=== PATIENT | male | born 1980 | race Caucasian/White ===

== ENCOUNTER 2018-08-02 13:54 | Emergency (ER) | payer OTHER, MEDICAID, SELFPAY ==
[2018-08-02 14:04] VITALS: BP 135/91; PULSE 96; RESP 15; TEMP 37.1; O2SAT 99; BMI 24.3
--- NOTE | 2018-08-02 14:06 | DI.RAD.S_ITS ---
PROCEDURE: XR KNEE LT 3V INDICATIONS: pain. fall TECHNIQUE: 3 views of the knee were acquired. COMPARISON: None. FINDINGS: Bones: No fractures or dislocations. No suspicious bony lesions. Soft tissues: No joint effusion. No suspicious soft tissue calcifications. There is anterior knee soft tissue swelling. IMPRESSION: Anterior left knee soft tissue swelling. No acute fracture or dislocation of the left knee. Dictated by: Stephane Vera M.D. on 08/02/2018 at 14:50 Approved by: Stephane Vera M.D. on 08/02/2018 at 14:52
--- NOTE | 2018-08-02 14:11 | ED.FALL ---
HPI - Fall General Chief Complaint: Fall Stated Complaint: Fell last night Time Seen by Provider: 08/02/18 14:11 Source: patient Mode of arrival: ambulatory Limitations: no limitations History of Present Illness HPI Narrative: Patient is a 37-year-old male here for evaluation of left knee pain. Patient states that he was running at home after his child 2 days ago when he tripped and fell. Landed on his right hand is left elbow and his left knee. He states that his hand and elbow or okay but his left knee is painful and swollen. Patient has been ambulatory since the incident however with pain. Has not tried anything for this except for ice prior to arrival. Related Data Allergies Allergy/AdvReac Type Severity Reaction Status Date / Time gabapentin Allergy Verified 08/02/18 14:04 iodine Allergy Verified 08/02/18 14:04 Review of Systems Constitutional Denies fever(s) Musculoskeletal Denies myalgias, Reports arthralgias (Left knee), Reports joint swelling (Left knee) and Reports limited range of motion (Left knee) Integumentary/Breasts Comments: Abrasion over the left knee Hematologic/Lymphatic Denies easy bleeding Exam Initial Vital Signs Initial Vital Signs: Vital Signs Temperature 98.8 F 08/02/18 14:04 Pulse Rate 96 H 08/02/18 14:04 Respiratory Rate 15 08/02/18 14:04 Blood Pressure 135/91 H 08/02/18 14:04 Pulse Oximetry 99 08/02/18 14:04 Const General: cooperative, well developed, well groomed and No acute distress Orientation: alert, awake and oriented x3 HENMT Head: normal to inspection and normocephalic Resp Effort & Inspection: normal respiratory effort Skin Other: 2 cm abrasion over the left anterior knee. No bleeding. Neuro General: alert, awake and oriented x3 Extrem Other: Left ankle unremarkable. Left hip unremarkable. Patient able to do straight leg raise. Is tender to palpation throughout the knee. Has a small effusion on the left. Psych Appearance: grossly normal and well kempt [facility] Medical History Lumbar radiculopathy, chronic (Acute) Surgical History No pertinent past surgical history (Acute) Course Orders Ordered: ED Orders 08/02/18 14:06 XR knee LT 3V Stat Vital Signs - 8 hr 08/02/18 14:04 Temperature 98.8 F Pulse Rate 96 H Respiratory Rate 15 Blood Pressure 135/91 H Pulse Oximetry 99 MDM - Fall Imaging Data Left knee x-ray: Radiologist's impression: PROCEDURE: XR KNEE LT 3V INDICATIONS: pain. fall TECHNIQUE: 3 views of the knee were acquired. COMPARISON: None. FINDINGS: Bones: No fractures or dislocations. No suspicious bony lesions. Soft tissues: No joint effusion. No suspicious soft tissue calcifications. There is anterior knee soft tissue swelling. IMPRESSION: Anterior left knee soft tissue swelling. No acute fracture or dislocation of the left knee. Dictated by: Stephane Vera M.D. on 08/02/2018 at 14:50 Approved by: Stephane Vera M.D. on 08/02/2018 at 14:52 Discharge Plan Departure Patient Disposition: Home Clinical Impression: Knee effusion, left, Injury of knee, left, Abrasion of knee, left, Fall Instructions: How To Perform RICE (Rest, Ice, Compress, Elevate), DI for Knee Effusion Activity Restrictions/Additional Instructions: You can walk like normal. Use soap and water to keep the abrasion over your left knee clean. Keep the knee elevated and iced. Return to the emergency department for any new or worsening symptoms. You can use ibuprofen/acetaminophen for pain. Stand Alone Forms: Work/School Restrictions
== END 2018-08-02 14:59 | disposition home or self-care (01) ==
PROVIDERS: Emergency Provider Emergency Medicine
DX: S80.212A Abrasion, left knee, initial encounter (principal); M25.462 Effusion, left knee; W01.0XXA Fall on same level from slipping, tripping and stumbling without subsequent striking against object, initial encounter
CPT/HCPCS: 73562; 99283

== ENCOUNTER 2018-09-04 18:02 | Emergency (ER) | payer OTHER, MEDICAID, SELFPAY ==
[2018-09-04 18:08] VITALS: BP 140/90; PULSE 117; RESP 18; TEMP 38.2; O2SAT 97
--- NOTE | 2018-09-04 18:30 | ED.UPPEXIN ---
HPI - Extremity Injury (Upper) <PATRIA Chavis - Last Filed: 09/04/18 22:14> General Chief Complaint: Extremity Injury, Upper Stated Complaint: RIGHT ELBOW BURNING AND PAIN Time Seen by Provider: 09/04/18 18:29 Source: patient Mode of arrival: ambulatory Limitations: no limitations History of Present Illness HPI narrative: 37-year-old healthy male that is a nonsmoker here for complaint of pain to his right elbow over the past week. He denies any trauma to the area. He states that has felt warm to the touch at times. Increased pain with motion to the right elbow. Pain is limited to the right elbow area. He denies any swelling. No drainage from the right elbow. He also complains of having a fever. He thinks that the fever is due to having cold-like symptoms as well. No other concerns or complaints Related Data Allergies Allergy/AdvReac Type Severity Reaction Status Date / Time gabapentin Allergy Verified 08/02/18 14:04 iodine Allergy Verified 08/02/18 14:04 Review of Systems <PATRIA Chavis - Last Filed: 09/04/18 22:14> Constitutional Reports fever(s) Eyes Denies change in vision, Denies eye discharge, Denies irritation and Denies loss of vision ENT Ears, Nose, Mouth, and Throat: Reports nasal congestion Cardiovascular Denies chest pain, Denies irregular heart rhythm, Denies lightheadedness, Denies palpitations, Denies dyspnea, Denies dyspnea on exertion and Denies orthopnea Respiratory Denies cough, Denies dyspnea, Denies dyspnea on exertion and Denies wheezing Gastrointestinal Gastrointestinal: Denies abdominal pain, Denies change in bowel habits, Denies diarrhea, Denies nausea and Denies vomiting Genitourinary Denies hematuria, Denies flank pain, Denies urinary incontinence and Denies urinary urgency Musculoskeletal Denies back pain, Denies muscle weakness, Denies numbness and Denies tingling Comments: pain into right upper Integumentary/Breasts Denies pruritus, Denies erythema, Denies rash and Denies wounds Neurologic Denies loss of vision, Denies numbness and Denies tingling Endocrine Denies palpitations Hematologic/Lymphatic Denies easy bruising Allergic/Immunologic Denies wheezing Exam <PATRIA Chavis - Last Filed: 09/04/18 22:14> Initial Vital Signs Initial Vital Signs: Vital Signs Temperature 100.7 F H 09/04/18 18:08 Pulse Rate 117 H 09/04/18 18:08 Respiratory Rate 18 09/04/18 18:08 Blood Pressure 140/90 09/04/18 18:08 Pulse Oximetry 97 09/04/18 18:08 Const General: cooperative and well developed Nutritional Appearance: well nourished Orientation: alert, awake, oriented x3 and not confused HENMT Mouth: oral mucosae normal and moist mucous membranes Eyes Conjunctivae: conjunctivae normal Sclera: sclerae normal Pupils: PERRL EOM: EOM intact bilaterally Resp Effort & Inspection: normal respiratory effort, able to speak in complete sentences, no respiratory distress and no use of accessory muscles Auscultation: clear to auscultation bilaterally, no rales, no rhonchi and no wheezes Cardio Rate: regular rate Rhythm: regular rhythm Heart Sounds: no click, no gallops, no murmurs and no rubs Pulses: normal peripheral pulses Skin General: no rashes or lesions noted, No jaundice and No petechiae Neuro General: alert, oriented x3, gait normal and no focal motor deficits Speech: speech normal Extrem Other: right elbow with no swelling no erythema. No deformities.Distal sensation is intact. Distal pulses are intact. Distal range of motion is intact. Patient does have increased pain with flexion extension of the right elbow both passive and active <Michael Bhatia DO - Last Filed: 09/04/18 22:55> Initial Vital Signs Initial Vital Signs: Vital Signs Temperature 100.7 F H 09/04/18 18:08 Pulse Rate 117 H 09/04/18 18:08 Respiratory Rate 18 09/04/18 18:08 Blood Pressure 140/90 09/04/18 18:08 Pulse Oximetry 97 09/04/18 18:08 Course <PATRIA Chavis - Last Filed: 09/04/18 22:14> Orders Ordered: ED Orders 09/04/18 19:07 XR elbow RT min 3V Stat 09/04/18 19:30 C-Reactive Protein Quant Stat Complete Blood Count AUTO DIFF Stat Comprehensive Metabolic Panel Stat Erythrocyte Sedimentation Rate Stat Lactate (Lactic Acid) Stat Procalcitonin Stat 09/04/18 19:40 Blood Culture Stat Discontinued Medications Ibuprofen (Advil) 400 mg PO NOW ONE Stop: 09/04/18 19:43 Last Admin: 09/04/18 19:51 Dose: 400 mg Vital Signs - 8 hr 09/04/18 18:08 09/04/18 20:43 Temperature 100.7 F H 98.1 F Pulse Rate 117 H 92 H Respiratory Rate 18 16 Blood Pressure 140/90 Blood Pressure [Right Arm] 118/63 Pulse Oximetry 97 98 <Michael Bhatia DO - Last Filed: 09/04/18 22:55> Orders Ordered: ED Orders 09/04/18 19:07 XR elbow RT min 3V Stat 09/04/18 19:30 C-Reactive Protein Quant Stat Complete Blood Count AUTO DIFF Stat Comprehensive Metabolic Panel Stat Erythrocyte Sedimentation Rate Stat Lactate (Lactic Acid) Stat Procalcitonin Stat 09/04/18 19:40 Blood Culture Stat Discontinued Medications Ibuprofen (Advil) 400 mg PO NOW ONE Stop: 09/04/18 19:43 Last Admin: 09/04/18 19:51 Dose: 400 mg Vital Signs - 8 hr 09/04/18 18:08 09/04/18 20:43 Temperature 100.7 F H 98.1 F Pulse Rate 117 H 92 H Respiratory Rate 18 16 Blood Pressure 140/90 Blood Pressure [Right Arm] 118/63 Pulse Oximetry 97 98 MDM - Extremity Injury (Upper) <PATRIA Chavis - Last Filed: 09/04/18 22:14> Lab Data Result diagrams: 09/04/18 19:30 09/04/18 19:30 Lab Results 09/04/18 09/04/18 09/04/18 Range/Units 19:30 19:30 19:30 WBC 4.5 (4.5-11.0) X10^3/uL RBC 4.51 (4.5-5.9) X10^6/uL Hgb 13.6 (13.5-17.5) g/dL Hct 40.3 L (41-53) % MCV 89.3 (80-100) fL MCH 30.2 (26-34) PG MCHC 33.8 (30-36) % RDW 13.3 (11.6-14.8) % Plt Count 229 (150-400) X10^3/uL Neut % (Auto) 58.9 (50-75) % Lymph % (Auto) 20.1 L (25-40) % Moca % (Auto) 19.7 H (3-14) % Eos % (Auto) 0.5 L (2-4) % Baso % (Auto) 0.8 (0-2) % Neut # (Auto) 2600 (4004-8370) /uL ESR (0-15) MM/HR Sodium Cancelled Potassium Cancelled Chloride Cancelled Carbon Dioxide Cancelled BUN Cancelled Creatinine Cancelled Estimated GFR Cancelled BUN/Creatinine Ratio Cancelled Glucose Cancelled Lactate (0.7-2.1) mmol/L Calcium Cancelled Total Bilirubin Cancelled AST Cancelled ALT Cancelled Alkaline Phosphatase Cancelled C-Reactive Protein (<1.0) mg/dL Total Protein Cancelled Albumin Cancelled Globulin Cancelled Albumin/Globulin Ratio Cancelled Procalcitonin < 0.05 (<0.5) ng/mL Specimen Hemolysis Cancelled 09/04/18 09/04/18 09/04/18 Range/Units 19:30 19:30 19:30 WBC (4.5-11.0) X10^3/uL RBC (4.5-5.9) X10^6/uL Hgb (13.5-17.5) g/dL Hct (41-53) % MCV (80-100) fL MCH (26-34) PG MCHC (30-36) % RDW (11.6-14.8) % Plt Count (150-400) X10^3/uL Neut % (Auto) (50-75) % Lymph % (Auto) (25-40) % Moca % (Auto) (3-14) % Eos % (Auto) (2-4) % Baso % (Auto) (0-2) % Neut # (Auto) (9893-1603) /uL ESR 4 (0-15) MM/HR Sodium 143 Potassium 3.8 Chloride 104 Carbon Dioxide 24 BUN 16 Creatinine 1.00 Estimated GFR > 60.0 BUN/Creatinine Ratio 16.0 Glucose 100 Lactate 0.7 (0.7-2.1) mmol/L Calcium 9.2 Total Bilirubin 0.1 L AST 23 ALT 35 Alkaline Phosphatase 59 C-Reactive Protein < 0.5 (<1.0) mg/dL Total Protein 7.0 Albumin 4.5 Globulin 2.5 Albumin/Globulin Ratio 1.8 Procalcitonin (<0.5) ng/mL Specimen Hemolysis Imaging Data right elbow : Radiologist's impression: [address] [address] XRay Report Signed Patient: Jeffery Lindsay LMR#: [id number] : 1980Acct:[id number] Age/Sex: 37 / MDate of Service: 09/04/18 Loc: ED Accession Number: [id number] Procedure: XR elbow RT min 3V Ordering Provider: Toni Castellanos PROCEDURE: XR ELBOW RT MIN 3V INDICATIONS: pain and redness to right elbow TECHNIQUE: 3 views of the elbow were acquired. COMPARISON: None. FINDINGS: Bones: No fractures or dislocations. No suspicious bony lesions. Soft tissues: No elbow joint effusion. No suspicious soft tissue calcifications. IMPRESSION: No acute elbow fracture or dislocation. No bony erosive changes. Dictated by: Reyes Pina M.D. on 09/04/2018 at 19:23 Approved by: Reyes Pina M.D. on 09/04/2018 at 19:24 [facility] Narrative Medical decision making narrative: CBC was obtained and was unremarkable. Normal white count. Chem panel was obtained was also unremarkable. ESR and CRP were not elevated. Procalcitonin lactate were negative. Fever at check-in most likely secondary to viral upper respiratory infection. After ibuprofen his vital signs normalized. right elbow point presents as right elbow sprain. [id number] ibuprofen as needed for discomfort. Plenty of fluids and rest. Follow up with primary care provider in 1 week. If continued pain to the right elbow that does not resolve May need to have advanced imaging. Return emergency for any worsening symptoms <Michael Bhatia DO - Last Filed: 09/04/18 22:55> Lab Data Lab Results 09/04/18 09/04/18 09/04/18 Range/Units 19:30 19:30 19:30 WBC 4.5 (4.5-11.0) X10^3/uL RBC 4.51 (4.5-5.9) X10^6/uL Hgb 13.6 (13.5-17.5) g/dL Hct 40.3 L (41-53) % MCV 89.3 (80-100) fL MCH 30.2 (26-34) PG MCHC 33.8 (30-36) % RDW 13.3 (11.6-14.8) % Plt Count 229 (150-400) X10^3/uL Neut % (Auto) 58.9 (50-75) % Lymph % (Auto) 20.1 L (25-40) % Moca % (Auto) 19.7 H (3-14) % Eos % (Auto) 0.5 L (2-4) % Baso % (Auto) 0.8 (0-2) % Neut # (Auto) 2600 (7975-3209) /uL ESR (0-15) MM/HR Sodium Cancelled Potassium Cancelled Chloride Cancelled Carbon Dioxide Cancelled BUN Cancelled Creatinine Cancelled Estimated GFR Cancelled BUN/Creatinine Ratio Cancelled Glucose Cancelled Lactate (0.7-2.1) mmol/L Calcium Cancelled Total Bilirubin Cancelled AST Cancelled ALT Cancelled Alkaline Phosphatase Cancelled C-Reactive Protein (<1.0) mg/dL Total Protein Cancelled Albumin Cancelled Globulin Cancelled Albumin/Globulin Ratio Cancelled Procalcitonin < 0.05 (<0.5) ng/mL Specimen Hemolysis Cancelled 09/04/18 09/04/18 09/04/18 Range/Units 19:30 19:30 19:30 WBC (4.5-11.0) X10^3/uL RBC (4.5-5.9) X10^6/uL Hgb (13.5-17.5) g/dL Hct (41-53) % MCV (80-100) fL MCH (26-34) PG MCHC (30-36) % RDW (11.6-14.8) % Plt Count (150-400) X10^3/uL Neut % (Auto) (50-75) % Lymph % (Auto) (25-40) % Moca % (Auto) (3-14) % Eos % (Auto) (2-4) % Baso % (Auto) (0-2) % Neut # (Auto) (2363-7146) /uL ESR 4 (0-15) MM/HR Sodium 143 Potassium 3.8 Chloride 104 Carbon Dioxide 24 BUN 16 Creatinine 1.00 Estimated GFR > 60.0 BUN/Creatinine Ratio 16.0 Glucose 100 Lactate 0.7 (0.7-2.1) mmol/L Calcium 9.2 Total Bilirubin 0.1 L AST 23 ALT 35 Alkaline Phosphatase 59 C-Reactive Protein < 0.5 (<1.0) mg/dL Total Protein 7.0 Albumin 4.5 Globulin 2.5 Albumin/Globulin Ratio 1.8 Procalcitonin (<0.5) ng/mL Specimen Hemolysis Discharge Plan Departure Patient Disposition: Home Clinical Impression: Viral URI Discharge Date/Time: 09/04/18 20:55 Interventions: ED Discharge Assessment Last Done: 09/04/18 20:55 Instructions: DI for Viral Upper Respiratory Infection -- Adult, DI for Elbow Sprain Activity Restrictions/Additional Instructions: x-ray the right elbow was obtained was negative for any acute findings. Laboratory results today were unremarkable. Signs and symptoms of fever and nasal congestion present as a viral upper respiratory infection. Right elbow pain presents as elbow sprain. Use [id number] ibuprofen as needed for discomfort and fever. Plenty of fluids and rest. Follow up with primary care provider. If continued pain that does not resolve may need to have advanced imaging. For any worsening symptoms return emergency room Referrals: [facility] [Provider Group] <Michael Bhatia DO - Last Filed: 09/04/18 22:55> Cosign ED Attending Rosemarie Attestation: I was available for consultation during this patient's emergency department encounter
--- NOTE | 2018-09-04 19:07 | DI.RAD.S_ITS ---
PROCEDURE: XR ELBOW RT MIN 3V INDICATIONS: pain and redness to right elbow TECHNIQUE: 3 views of the elbow were acquired. COMPARISON: None. FINDINGS: Bones: No fractures or dislocations. No suspicious bony lesions. Soft tissues: No elbow joint effusion. No suspicious soft tissue calcifications. IMPRESSION: No acute elbow fracture or dislocation. No bony erosive changes. Dictated by: Reyes Pina M.D. on 09/04/2018 at 19:23 Approved by: Reyes Pina M.D. on 09/04/2018 at 19:24
[2018-09-04] MEDS: IBUPROFEN 400 MG TABLET PO (19:51)
[2018-09-04 19:54] LABS: Add Manual Diff / Slide Review NO; Basophils Percent Auto 0.8 % (0-2); Eosinophils Percent Auto 0.5 % (2-4); Hematocrit 40.3 % (41-53); Hemoglobin 13.6 g/dL (13.5-17.5); Lymphocytes Percent Auto 20.1 % (25-40); Mean Corpuscular HGB Conc 33.8 % (30-36); Mean Corpuscular Hemoglobin 30.2 PG (26-34); Mean Corpuscular Volume 89.3 fL (80-100); Monocytes Percent Auto 19.7 % (3-14); Neutrophils Absolute Auto 2600 /uL (1500-7000); Neutrophils Percent Auto 58.9 % (50-75); Platelet Count 229 X10^3/uL (150-400); Red Blood Cell Count 4.51 X10^6/uL (4.5-5.9); Red Cell Distribution Width 13.3 % (11.6-14.8); White Blood Cell Count 4.5 X10^3/uL (4.5-11.0)
--- NOTE | 2018-09-04 19:58 | PC.NURSE ---
drawn by lab
[2018-09-04 20:07] LABS: Lactate (Lactic Acid) 0.7 mmol/L (0.7-2.1)
[2018-09-04 20:09] LABS: Alanine Aminotransferase 35 IU/L (21-72); Albumin 4.5 g/dL (3.5-5.0); Albumin Globulin Ratio 1.8 (1.0-2.8); Alkaline Phosphatase 59 U/L (38-126); Aspartate Aminotransferase 23 IU/L (17-59); Bilirubin Total 0.1 mg/dL (0.2-1.3); Blood Urea Nitrogen 16 mg/dL (9-20); C-Reactive Protein Quant < 0.5 mg/dL (<1.0); Calcium 9.2 mg/dL (8.4-10.2); Carbon Dioxide 24 mmol/L (22-32); Chloride 104 mmol/L (98-107); Estimated Glomerular Filt Rate > 60.0 mL/min (>60); Globulin 2.5 g/dL (1.7-4.1); Glucose 100 mg/dL (70-100); HEMOLYSIS < 15 (0-50); Potassium 3.8 mmol/L (3.4-5.1); Sodium 143 mmol/L (137-145)
[2018-09-04 20:12] LABS: Erythrocyte Sedimentation Rate 4 MM/HR (0-15)
[2018-09-04 20:24] LABS: Procalcitonin < 0.05 ng/mL (<0.5)
[2018-09-04 20:43] VITALS: BP 118/63; PULSE 92; RESP 16; TEMP 36.7; O2SAT 98
--- NOTE | 2018-09-04 20:50 | ED_ITS ---
HPI - Extremity Injury (Upper) <PATRIA Chavis - Last Filed: 09/04/18 22:14> General Chief Complaint: Extremity Injury, Upper Stated Complaint: RIGHT ELBOW BURNING AND PAIN Time Seen by Provider: 09/04/18 18:29 Source: patient Mode of arrival: ambulatory Limitations: no limitations History of Present Illness HPI narrative: 37-year-old healthy male that is a nonsmoker here for complaint of pain to his right elbow over the past week. He denies any trauma to the area. He states that has felt warm to the touch at times. Increased pain with motion to the right elbow. Pain is limited to the right elbow area. He denies any swelling. No drainage from the right elbow. He also complains of having a fever. He thinks that the fever is due to having cold- like symptoms as well. No other concerns or complaints Related Data Allergies Allergy/AdvReac Type Severity Reaction Status Date / Time gabapentin Allergy Verified 08/02/18 14:04 iodine Allergy Verified 08/02/18 14:04 Review of Systems <PATRIA Chavis - Last Filed: 09/04/18 22:14> Constitutional Reports fever(s) Eyes Denies change in vision, Denies eye discharge, Denies irritation and Denies loss of vision ENT Ears, Nose, Mouth, and Throat: Reports nasal congestion Cardiovascular Denies chest pain, Denies irregular heart rhythm, Denies lightheadedness, Denies palpitations, Denies dyspnea, Denies dyspnea on exertion and Denies orthopnea Respiratory Denies cough, Denies dyspnea, Denies dyspnea on exertion and Denies wheezing Gastrointestinal Gastrointestinal: Denies abdominal pain, Denies change in bowel habits, Denies diarrhea, Denies nausea and Denies vomiting Genitourinary Denies hematuria, Denies flank pain, Denies urinary incontinence and Denies urinary urgency Musculoskeletal Denies back pain, Denies muscle weakness, Denies numbness and Denies tingling Comments: pain into right upper Integumentary/Breasts Denies pruritus, Denies erythema, Denies rash and Denies wounds Neurologic Denies loss of vision, Denies numbness and Denies tingling Endocrine Denies palpitations Hematologic/Lymphatic Denies easy bruising Allergic/Immunologic Denies wheezing Exam <PATRIA Chavis - Last Filed: 09/04/18 22:14> Initial Vital Signs Initial Vital Signs: Vital Signs Temperature 100.7 F H 09/04/18 18:08 Pulse Rate 117 H 09/04/18 18:08 Respiratory Rate 18 09/04/18 18:08 Blood Pressure 140/90 09/04/18 18:08 Pulse Oximetry 97 09/04/18 18:08 Const General: cooperative and well developed Nutritional Appearance: well nourished Orientation: alert, awake, oriented x3 and not confused HENMT Mouth: oral mucosae normal and moist mucous membranes Eyes Conjunctivae: conjunctivae normal Sclera: sclerae normal Pupils: PERRL EOM: EOM intact bilaterally Resp Effort & Inspection: normal respiratory effort, able to speak in complete sentences, no respiratory distress and no use of accessory muscles Auscultation: clear to auscultation bilaterally, no rales, no rhonchi and no wheezes Cardio Rate: regular rate Rhythm: regular rhythm Heart Sounds: no click, no gallops, no murmurs and no rubs Pulses: normal peripheral pulses Skin General: no rashes or lesions noted, No jaundice and No petechiae Neuro General: alert, oriented x3, gait normal and no focal motor deficits Speech: speech normal Extrem Other: right elbow with no swelling no erythema. No deformities.Distal sensation is intact. Distal pulses are intact. Distal range of motion is intact. Patient does have increased pain with flexion extension of the right elbow both passive and active <Michael Bhatia DO - Last Filed: 09/04/18 22:55> Initial Vital Signs Initial Vital Signs: Vital Signs Temperature 100.7 F H 09/04/18 18:08 Pulse Rate 117 H 09/04/18 18:08 Respiratory Rate 18 09/04/18 18:08 Blood Pressure 140/90 09/04/18 18:08 Pulse Oximetry 97 09/04/18 18:08 Course <PATRIA Chavis - Last Filed: 09/04/18 22:14> Orders Ordered: ED Orders 09/04/18 19:07 XR elbow RT min 3V Stat 09/04/18 19:30 C-Reactive Protein Quant Stat Complete Blood Count AUTO DIFF Stat Comprehensive Metabolic Panel Stat Erythrocyte Sedimentation Rate Stat Lactate (Lactic Acid) Stat Procalcitonin Stat 09/04/18 19:40 Blood Culture Stat Discontinued Medications Ibuprofen (Advil) 400 mg PO NOW ONE Stop: 09/04/18 19:43 Last Admin: 09/04/18 19:51 Dose: 400 mg Vital Signs - 8 hr 09/04/18 18:08 09/04/18 20:43 Temperature 100.7 F H 98.1 F Pulse Rate 117 H 92 H Respiratory Rate 18 16 Blood Pressure 140/90 Blood Pressure [Right Arm] 118/63 Pulse Oximetry 97 98 <Michael Bhatia DO - Last Filed: 09/04/18 22:55> Orders Ordered: ED Orders 09/04/18 19:07 XR elbow RT min 3V Stat 09/04/18 19:30 C-Reactive Protein Quant Stat Complete Blood Count AUTO DIFF Stat Comprehensive Metabolic Panel Stat Erythrocyte Sedimentation Rate Stat Lactate (Lactic Acid) Stat Procalcitonin Stat 09/04/18 19:40 Blood Culture Stat Discontinued Medications Ibuprofen (Advil) 400 mg PO NOW ONE Stop: 09/04/18 19:43 Last Admin: 09/04/18 19:51 Dose: 400 mg Vital Signs - 8 hr 09/04/18 18:08 09/04/18 20:43 Temperature 100.7 F H 98.1 F Pulse Rate 117 H 92 H Respiratory Rate 18 16 Blood Pressure 140/90 Blood Pressure [Right Arm] 118/63 Pulse Oximetry 97 98 MDM - Extremity Injury (Upper) <PATRIA Chavis - Last Filed: 09/04/18 22:14> Lab Data Result diagrams: 09/04/18 19:30 09/04/18 19:30 Lab Results 09/04/18 09/04/18 09/04/18 Range/Units 19:30 19:30 19:30 WBC 4.5 (4.5-11.0) X10^3/uL RBC 4.51 (4.5-5.9) X10^6/uL Hgb 13.6 (13.5-17.5) g/dL Hct 40.3 L (41-53) % MCV 89.3 (80-100) fL MCH 30.2 (26-34) PG MCHC 33.8 (30-36) % RDW 13.3 (11.6-14.8) % Plt Count 229 (150-400) X10^3/uL Neut % (Auto) 58.9 (50-75) % Lymph % (Auto) 20.1 L (25-40) % Hawkins % (Auto) 19.7 H (3-14) % Eos % (Auto) 0.5 L (2-4) % Baso % (Auto) 0.8 (0-2) % Neut # (Auto) 2600 (5532-9779) /uL ESR (0-15) MM/HR Sodium Cancelled Potassium Cancelled Chloride Cancelled Carbon Dioxide Cancelled BUN Cancelled Creatinine Cancelled Estimated GFR Cancelled BUN/Creatinine Ratio Cancelled Glucose Cancelled Lactate (0.7-2.1) mmol/L Calcium Cancelled Total Bilirubin Cancelled AST Cancelled ALT Cancelled Alkaline Phosphatase Cancelled C-Reactive Protein (<1.0) mg/dL Total Protein Cancelled Albumin Cancelled Globulin Cancelled Albumin/Globulin Ratio Cancelled Procalcitonin < 0.05 (<0.5) ng/mL Specimen Hemolysis Cancelled 09/04/18 09/04/18 09/04/18 Range/Units 19:30 19:30 19:30 WBC (4.5-11.0) X10^3/uL RBC (4.5-5.9) X10^6/uL Hgb (13.5-17.5) g/dL Hct (41-53) % MCV (80-100) fL MCH (26-34) PG MCHC (30-36) % RDW (11.6-14.8) % Plt Count (150-400) X10^3/uL Neut % (Auto) (50-75) % Lymph % (Auto) (25-40) % Hawkins % (Auto) (3-14) % Eos % (Auto) (2-4) % Baso % (Auto) (0-2) % Neut # (Auto) (8549-1238) /uL ESR 4 (0-15) MM/HR Sodium 143 Potassium 3.8 Chloride 104 Carbon Dioxide 24 BUN 16 Creatinine 1.00 Estimated GFR > 60.0 BUN/Creatinine Ratio 16.0 Glucose 100 Lactate 0.7 (0.7-2.1) mmol/L Calcium 9.2 Total Bilirubin 0.1 L AST 23 ALT 35 Alkaline Phosphatase 59 C-Reactive Protein < 0.5 (<1.0) mg/dL Total Protein 7.0 Albumin 4.5 Globulin 2.5 Albumin/Globulin Ratio 1.8 Procalcitonin (<0.5) ng/mL Specimen Hemolysis Imaging Data right elbow : Radiologist's impression: [address] [address] XRay Report Signed Patient: Jeffery Lindsay LMR#: [id number] : 1980Acct:[id number] Age/Sex: 37 / MDate of Service: 09/04/18 Loc: ED Accession Number: [id number] Procedure: XR elbow RT min 3V Ordering Provider: Toni Castellanos PROCEDURE: XR ELBOW RT MIN 3V INDICATIONS: pain and redness to right elbow TECHNIQUE: 3 views of the elbow were acquired. COMPARISON: None. FINDINGS: Bones: No fractures or dislocations. No suspicious bony lesions. Soft tissues: No elbow joint effusion. No suspicious soft tissue calcifications. IMPRESSION: No acute elbow fracture or dislocation. No bony erosive changes. Dictated by: Reyes Pina M.D. on 09/04/2018 at 19:23 Approved by: Reyes Pina M.D. on 09/04/2018 at 19:24 [facility] Narrative Medical decision making narrative: CBC was obtained and was unremarkable. Normal white count. Chem panel was obtained was also unremarkable. ESR and CRP were not elevated. Procalcitonin lactate were negative. Fever at check- in most likely secondary to viral upper respiratory infection. After ibuprofen his vital signs normalized. right elbow point presents as right elbow sprain. [id number] ibuprofen as needed for discomfort. Plenty of fluids and rest. Follow up with primary care provider in 1 week. If continued pain to the right elbow that does not resolve May need to have advanced imaging. Return emergency for any worsening symptoms <Michael Bhatia DO - Last Filed: 09/04/18 22:55> Lab Data Lab Results 09/04/18 09/04/18 09/04/18 Range/Units 19:30 19:30 19:30 WBC 4.5 (4.5-11.0) X10^3/uL RBC 4.51 (4.5-5.9) X10^6/uL Hgb 13.6 (13.5-17.5) g/dL Hct 40.3 L (41-53) % MCV 89.3 (80-100) fL MCH 30.2 (26-34) PG MCHC 33.8 (30-36) % RDW 13.3 (11.6-14.8) % Plt Count 229 (150-400) X10^3/uL Neut % (Auto) 58.9 (50-75) % Lymph % (Auto) 20.1 L (25-40) % Hawkins % (Auto) 19.7 H (3-14) % Eos % (Auto) 0.5 L (2-4) % Baso % (Auto) 0.8 (0-2) % Neut # (Auto) 2600 (8807-7800) /uL ESR (0-15) MM/HR Sodium Cancelled Potassium Cancelled Chloride Cancelled Carbon Dioxide Cancelled BUN Cancelled Creatinine Cancelled Estimated GFR Cancelled BUN/Creatinine Ratio Cancelled Glucose Cancelled Lactate (0.7-2.1) mmol/L Calcium Cancelled Total Bilirubin Cancelled AST Cancelled ALT Cancelled Alkaline Phosphatase Cancelled C-Reactive Protein (<1.0) mg/dL Total Protein Cancelled Albumin Cancelled Globulin Cancelled Albumin/Globulin Ratio Cancelled Procalcitonin < 0.05 (<0.5) ng/mL Specimen Hemolysis Cancelled 09/04/18 09/04/18 09/04/18 Range/Units 19:30 19:30 19:30 WBC (4.5-11.0) X10^3/uL RBC (4.5-5.9) X10^6/uL Hgb (13.5-17.5) g/dL Hct (41-53) % MCV (80-100) fL MCH (26-34) PG MCHC (30-36) % RDW (11.6-14.8) % Plt Count (150-400) X10^3/uL Neut % (Auto) (50-75) % Lymph % (Auto) (25-40) % Hawkins % (Auto) (3-14) % Eos % (Auto) (2-4) % Baso % (Auto) (0-2) % Neut # (Auto) (1130-7753) /uL ESR 4 (0-15) MM/HR Sodium 143 Potassium 3.8 Chloride 104 Carbon Dioxide 24 BUN 16 Creatinine 1.00 Estimated GFR > 60.0 BUN/Creatinine Ratio 16.0 Glucose 100 Lactate 0.7 (0.7-2.1) mmol/L Calcium 9.2 Total Bilirubin 0.1 L AST 23 ALT 35 Alkaline Phosphatase 59 C-Reactive Protein < 0.5 (<1.0) mg/dL Total Protein 7.0 Albumin 4.5 Globulin 2.5 Albumin/Globulin Ratio 1.8 Procalcitonin (<0.5) ng/mL Specimen Hemolysis Discharge Plan Departure Patient Disposition: Home Clinical Impression: Viral URI Discharge Date/Time: 09/04/18 20:55 Interventions: ED Discharge Assessment Last Done: 09/04/18 20:55 Instructions: DI for Viral Upper Respiratory Infection -- Adult, DI for Elbow Sprain Activity Restrictions/Additional Instructions: x-ray the right elbow was obtained was negative for any acute findings. Laboratory results today were unremarkable. Signs and symptoms of fever and nasal congestion present as a viral upper respiratory infection. Right elbow pain presents as elbow sprain. Use [id number] ibuprofen as needed for discomfort and fever. Plenty of fluids and rest. Follow up with primary care provider. If continued pain that does not resolve may need to have advanced imaging. For any worsening symptoms return emergency room Referrals: [facility] [Provider Group] <Michael Bhatia DO - Last Filed: 09/04/18 22:55> Cosign ED Attending Rosemarie Attestation: I was available for consultation during this patient's emergency department encounter
== END 2018-09-04 20:55 | disposition home or self-care (01) ==
PROVIDERS: Emergency Provider Nurse Practitioner Family
DX: J06.9 Acute upper respiratory infection, unspecified (principal)
CPT/HCPCS: 36415; 73080; 80053; 83605; 84145; 85025; 85651; 86140; 87040; 99282; 99284

== ENCOUNTER 2018-09-30 16:31 | Emergency (ER) | payer OTHER, MEDICAID, SELFPAY ==
[2018-09-30 16:44] VITALS: BP 133/84; PULSE 81; RESP 18; TEMP 36.4; O2SAT 98; BMI 22.8
== END 2018-09-30 20:21 | disposition left against medical advice (07) ==
DX: M25.521 Pain in right elbow (principal)
CPT/HCPCS: 99282

== ENCOUNTER 2018-10-10 22:04 | Emergency (ER) | payer OTHER, MEDICAID, SELFPAY ==
[2018-10-10 22:28] VITALS: BP 136/80; PULSE 87; RESP 16; O2SAT 96; BMI 22.9
[2018-10-10] MEDS: KETOROLAC 60 MG/2 ML VIAL IM (22:56)
--- NOTE | 2018-10-10 22:59 | ED_ITS ---
HPI - Extremity Problem General Chief complaint: Extremity Problem,Nontraumatic Stated complaint: RIGHT ARM ELBOW IS ACHING FOR ABOUT A MONTH Time Seen by Provider: 10/10/18 22:36 Source: patient Mode of arrival: ambulatory Limitations: no limitations History of Present Illness HPI Narrative: the patient is a 38-year-old male who presents with right elbow pain. Said it has been ongoing for number of months he does not really remember injuring it. He feels numbness and tingling in the ulnar region. Feels like his arm might be getting slightly weak. He has not had any injury no fever. He has been taking ibuprofen without any relief. He does not have a PCP. No shoulder clavicle pain. He is right-hand dominant MD Complaint: joint paint ( right elbow) Onset (ago): month(s) Quality: burning Related Data Previous Rx's Medication Instructions Recorded meloxicam [Mobic] 7.5 mg PO DAILY PRN #30 tab 10/10/18 Allergies Allergy/AdvReac Type Severity Reaction Status Date / Time gabapentin Allergy Verified 09/30/18 16:47 iodine Allergy Verified 09/30/18 16:47 Review of Systems Review of Systems GENERAL: Denies chills,fever HEENT: Denies throat pain RESPIRATORY: Denies dyspnea, cough, wheezing CARDIOVASCULAR: Denies chest pain, palpitations GASTROINTESTINAL: Denies nausea, vomiting MUSCULOSKELETAL: Denies extremity pain, injury SKIN: No rash, no laceration, no pruritus NEUROLOGIC: Denies weakness, dizziness, headache, numbness 8 point review of systems is negative except for those stated above and HPI [facility] Social History Smoking Status: Current every day smoker Exam Initial Vital Signs Initial Vital Signs: Vital Signs Pulse Rate 87 10/10/18 22:28 Respiratory Rate 16 10/10/18 22:28 Blood Pressure 136/80 10/10/18 22:28 Pulse Oximetry 96 10/10/18 22:28 GENERAL: Well-appearing, well-nourished and in no acute distress. CARDIOVASCULAR: peripheral pulses in tact, cap refill <2 sec RESPIRATORY: No respiratory distress, speaks in full sentences without difficulty EXTREMITIES: Normal range of motion, no clubbing or edema. Neurovascularly intact right elbow: no erythema no swelling. No gross bony deformity. Neurovascularly intact. A wrist extension and flexion intact. Finger abdomen abduction along with opposition okay. Water Pipe Installer strength equal bilaterally. NEUROLOGICAL: Cranial nerves II through XII grossly intact. Normal gait and speech. SKIN: Warm, dry, no petechiae, no rashes or lesions. Course Orders Ordered: Discontinued Medications Ketorolac Tromethamine (Toradol) 60 mg IM NOW ONE Stop: 10/10/18 22:55 Last Admin: 10/10/18 22:56 Dose: 60 mg Vital Signs - 8 hr 10/10/18 22:28 10/10/18 23:18 Temperature 98.3 F Pulse Rate 87 82 Respiratory Rate 16 16 Blood Pressure 136/80 142/84 H Pulse Oximetry 96 96 MDM - Extremity (Nontraumatic) MDM Narrative Medical decision making narrative: no sign of trauma or injury. No erythema and afebrile do not suspect septic joint. Likely epicondylitis. Discharge Plan Departure Patient Disposition: Home Clinical Impression: Sprain of elbow, right Discharge Date/Time: 10/10/18 23:19 Interventions: ED Discharge Assessment Last Done: 10/10/18 23:18 Instructions: Medial Epicondylitis, DI for Elbow Sprain Activity Restrictions/Additional Instructions: *You have been diagnosed with right elbow strain *What to do: may require MRI, but non emergent at this time *Continue to take medications as directed - Mobic 7.5 mg once a day with food- do not combine with any other NSAID including Motrin, ibuprofen, naproxen, Aleve, Advil etc *Follow up with your primary care provider in 2-3 days *Return to ER if you should have weakness in hand, fever, redness, swelling any new, worsening or concerning symptoms Prescriptions: New meloxicam [Mobic] 7.5 mg tablet 7.5 mg PO DAILY PRN (Reason: pain (scale score 4-6)) Qty: 30 RF: 0
[2018-10-10 23:18] VITALS: BP 142/84; PULSE 82; RESP 16; TEMP 36.8; O2SAT 96
== END 2018-10-10 23:19 | disposition home or self-care (01) ==
PROVIDERS: Emergency Provider Emergency Medicine
DX: S53.401A Unspecified sprain of right elbow, initial encounter (principal)
CPT/HCPCS: 96372; 99282; 99283; J1885

== ENCOUNTER 2019-09-18 11:31 | Emergency (ER) | payer OTHER, MEDICAID, SELFPAY ==
[2019-09-18 11:37] VITALS: BP 149/115; PULSE 73; RESP 18; TEMP 36.7; O2SAT 100
--- NOTE | 2019-09-18 11:38 | ED.DENTAL ---
HPI - Dental/Oral General Stated complaint: abscess tooth and allergic reaction to penecillin Time Seen by Provider: 09/18/19 11:33 Source: patient Mode of arrival: Ambulatory Limitations: no limitations History of Present Illness HPI Narrative: 38-year-old male who states he was seen in the walk-in clinic 3 days ago for dental infection. Was given penicillin and Toradol. He states since then he feels like things are getting worse and he has a very upset stomach from the penicillin. States he knows he has very poor teeth. Has not seen a dentist since the onset of the symptoms. No problems breathing. Related Data Previous Rx's Medication Instructions Recorded ketorolac 10 mg tablet 10 mg PO Q6H 5 Days #20 tab 09/16/19 penicillin V potassium 500 mg 500 mg PO QID 7 Days #28 tab 09/16/19 tablet clindamycin HCl 300 mg PO QID 7 Days #28 cap 09/18/19 ibuprofen 800 mg PO Q8H PRN #90 tab 09/18/19 ondansetron 4 mg PO Q6H PRN #14 tab 09/18/19 Allergies Allergy/AdvReac Type Severity Reaction Status Date / Time gabapentin Allergy Verified 09/16/19 10:05 iodine Allergy Verified 09/16/19 10:05 levofloxacin [From Levaquin] Allergy Verified 09/18/19 11:40 Penicillins AdvReac Nausea Verified 09/18/19 11:40 Review of Systems Constitutional Constitutional: Denies fever(s) ENT Comments: Upper front dental swelling and infection Cardiovascular Cardiovascular: Denies dyspnea Respiratory Respiratory: Denies dyspnea Gastrointestinal Gastrointestinal: Denies change in stool character, Reports nausea and Denies vomiting Integumentary/Breasts Skin/Breast: Denies lesions and Denies rash Neurologic Neurologic: Denies behavioral changes Psychiatric Psychiatric: Denies behavioral changes Hematologic/Lymphatic Hematologic/Lymphatic: Denies easy bleeding and Denies easy bruising Patient History Medical History Lumbar radiculopathy, chronic (Acute) Social History Smoking Status: Current every day smoker Smoking Status: Current every day smoker alcohol intake frequency: other Substance Use Type: marijuana Exam Const General: cooperative and comfortable HENMT Ears: TM's normal bilaterally Nose: external nose normal Mouth: oral mucosae normal Teeth and gingiva: caries and poor dentition Throat: posterior oropharynx normal Resp Effort & Inspection: normal respiratory effort Cardio Rate: regular rate Skin Lesions: no lesions Rashes: no rashes Extrem General: normal to inspection and capillary refill normal MDM - Dental/Oral MDM Narrative Medical decision making narrative: Patient with very poor dentition. Has no defined abscess seen externally. Will hold on any incision and drainage. He states that he feels like symptoms are worsening since he was started on penicillin. Will switch to clindamycin. He was informed that he needs to see a dentist. He expressed understanding and agreement. Discharge Plan Departure Patient Disposition: Home Clinical Impression: Tooth infection Instructions: DI for Tooth Abscess Activity Restrictions/Additional Instructions: Stop the penicillin and start taking the antibiotics you were given a prescription for today. You do need to see a dentist. Return to the emergency department for any new or worsening symptoms Prescriptions: New clindamycin HCl 300 mg capsule 300 mg PO QID 7 Days Qty: 28 RF: 0 ibuprofen 800 mg tablet 800 mg PO Q8H PRN (Reason: pain) Qty: 90 RF: 0 ondansetron 4 mg tablet,disintegrating 4 mg PO Q6H PRN (Reason: nausea and vomiting) Qty: 14 RF: 0 No Action penicillin V potassium 500 mg tablet 500 mg PO QID 7 Days Qty: 28 RF: 0 ketorolac 10 mg tablet 10 mg PO Q6H 5 Days Qty: 20 RF: 0
[2019-09-18 11:46] VITALS: BP 144/99; PULSE 72; RESP 18; O2SAT 99
== END 2019-09-18 11:48 | disposition home or self-care (01) ==
PROVIDERS: Emergency Provider Emergency Medicine
DX: K04.7 Periapical abscess without sinus (principal)
CPT/HCPCS: 99281

== ENCOUNTER → 2019-10-11 10:11 | Outpatient (CLI) | payer OTHER, MEDICAID, SELFPAY ==
--- NOTE | 2019-10-11 10:13 | DI.RAD.S_ITS ---
PROCEDURE: XR LUMBAR SPINE MIN 4V INDICATIONS: Progressive lower back pain TECHNIQUE: 5 views of the lumbar spine were acquired. COMPARISON: None. FINDINGS: Bones: 5 nonrib-bearing vertebrae are present. There is normal bony alignment. No vertebral body compression fractures. No suspicious bony lesions. Soft tissues: Overlying bowel gas pattern is normal. No suspicious soft tissue calcifications. Oblique images: No pars defects. IMPRESSION: Normal for age, source of current back pain symptoms is not seen. Dictated by: Kris Sarmiento M.D. on 10/11/2019 at 12:19 Approved by: Kris Sarmiento M.D. on 10/11/2019 at 12:19
== END ==
PROVIDERS: PCP Family Medicine; Visit Provider Family Medicine
DX: M54.5 Low back pain (principal); M54.16 Radiculopathy, lumbar region
CPT/HCPCS: 72110

== ENCOUNTER 2019-11-16 19:43 | Emergency (ER) | payer OTHER, MEDICAID, SELFPAY ==
[2019-11-16 19:46] VITALS: BP 141/90; PULSE 91; RESP 14; TEMP 36.9; O2SAT 100; BMI 22.9
--- NOTE | 2019-11-16 20:20 | ED_ITS ---
HPI - General Adult General Chief complaint: Dizziness Stated complaint: Dizzy and sweating Time Seen by Provider: 11/16/19 20:16 Source: patient Mode of arrival: EMS Limitations: language barrier History of Present Illness HPI narrative: 39-year-old male was brought in by EMS we gustafson of lightheadedness and dizziness. And also sweating. Patient states that he was standing [place] the [place] waiting to [facility], [place] when he stated that he suddenly became very lightheaded. He states that he felt like he was almost going to pass out. He also states he started to sweat. At the time he was not having any chest pain or shortness of breath or headache or vision changes. Was brought in by EMS for evaluation Related Data Home Medications Medication Instructions Recorded Confirmed oxycodone-acetaminophen 5 mg-325 1 tab PO Q4-6H PRN 10/11/19 10/11/19 mg tablet Previous Rx's Medication Instructions Recorded ibuprofen 800 mg PO Q8H PRN #90 tab 09/18/19 ondansetron 4 mg PO Q6H PRN #14 tab 09/18/19 bupropion HCl 150 mg 24 hr tablet, 150 mg PO QAM #30 tab 09/20/19 extended release cyclobenzaprine 10 mg tablet 10 mg PO BEDTIME PRN #30 tab 10/11/19 Allergies Allergy/AdvReac Type Severity Reaction Status Date / Time bacitracin Allergy Severe swelling Verified 11/16/19 19:46 [From Neosporin and dyspnea ([id number])] gabapentin Allergy Severe Rash on Verified 11/16/19 19:46 back iodine Allergy Severe anaphylaxis Verified 11/16/19 19:46 neomycin Allergy Severe swelling Verified 11/16/19 19:46 [From Neosporin and dyspnea ([id number])] Penicillins Allergy Severe N/V and Verified 11/16/19 19:46 facial swelling polymyxin B Allergy Severe swelling Verified 11/16/19 19:46 [From Neosporin and dyspnea ([id number])] levofloxacin [From Levaquin] Allergy Unknown Verified 11/16/19 19:46 Review of Systems Constitutional Constitutional: Denies fever(s) and Denies weakness ENT Ears, Nose, Mouth, and Throat: Denies disequilibrium Cardiovascular Cardiovascular: Denies chest pain and Denies dyspnea Respiratory Respiratory: Denies dyspnea Gastrointestinal Gastrointestinal: Denies abdominal pain Musculoskeletal Musculoskeletal: Denies myalgias and Denies arthralgias Integumentary/Breasts Skin/Breast: Denies rash Neurologic Neurologic: Denies disequilibrium and Denies weakness Hematologic/Lymphatic Hematologic/Lymphatic: Denies easy bleeding and Denies easy bruising Patient History Medical History Depression (Acute) Hypertension (Chronic) Lumbar radiculopathy, chronic (Acute) Tobacco abuse (Acute) Family History (Updated 09/29/19 @ 20:05 by Elisabeth Landeros) Father Hypertension Mental health problem Stroke Mother History of heart disease Mental health problem Stroke Social History Smoking Status: Current every day smoker Tobacco: How many years used: 14 quit status: considering quitting second hand exposure: No alcohol intake: former substance use type: marijuana (current use for back pain ) Smoking Status: Current every day smoker alcohol intake frequency: other Substance Use Type: marijuana Exam Initial Vital Signs Initial Vital Signs: Vital Signs Temperature 98.5 F 11/16/19 19:46 Pulse Rate 91 H 11/16/19 19:46 Respiratory Rate 14 11/16/19 19:46 Blood Pressure 141/90 H 11/16/19 19:46 Pulse Oximetry 100 11/16/19 19:46 Const General: cooperative, healthy appearing, comfortable and well developed HENWI Head: normal to inspection and normocephalic Resp Effort & Inspection: normal respiratory effort Auscultation: clear to auscultation bilaterally Cardio Rate: regular rate Rhythm: regular rhythm Pulses: radial pulses present GI Inspection: non-distended Palpation: soft Skin Lesions: no lesions Rashes: no rashes Neuro General: alert, awake and oriented x3 Cognition: normal cognition Speech: speech normal Extrem General: normal to inspection and capillary refill normal Psych Appearance: grossly normal and well kempt Scores GCS [place] coma scale eye opening: Spontaneous [place] coma scale verbal response: Orientated [place] coma scale motor response: Obey commands [place] coma scale total score: 15 Course Orders Ordered: ED Orders 11/16/19 19:48 EKG-12 Lead Stat Vital Signs Vital signs: Vital Signs - 8 hr 11/16/19 22:00 11/16/19 22:05 11/16/19 23:07 Temperature 99.0 F 99.2 F Pulse Rate 116 H 86 Respiratory Rate 20 18 Blood Pressure [Right Arm] 151/101 H 138/83 128/75 Pulse Oximetry 97 97 Medical Decision Making Lab Data Lab results reviewed: Yes I reviewed the patient's lab results. Labs: Point of Care Testing Glucose POC 124 Point of care testing: Point of Care Testing Glucose POC 124 ECG Data Attestation: I personally reviewed and interpreted this ECG as follows: Prior ECG tracings: not available for review Interpretation: Sinus rhythm Ventricular rate of 94 Normal axis Normal QRS Normal QTC No ST T wave changes MDM Narrative Medical decision making narrative: EKG is unremarkable, blood sugars unremarkable, has a normal physical exam. Unsure the exact etiology was symptoms however does not appear to be a hypoglycemia episode. Symptoms are not consistent with CVA or TIA. He was not having any other symptoms at the time of his lightheadedness such as chest pain or shortness of breath. Feel we can hold on further workup for now. Patient did tolerate oral intake. He states that it has been several days since he has had anything significant to eat given the fact that he just recently had some teeth pulled. We did discuss return precautions and follow-up instructions. He expressed understanding and agreement. Discharge Plan Departure Patient Disposition: Home Clinical Impression: Lightheadedness Discharge Date/Time: 11/17/19 00:24 Instructions: DI for Dizziness-Nonvertigo Activity Restrictions/Additional Instructions: Continue all of your medications as directed. Be sure to increase your fluid intake. Contact your primary provider for follow-up. Return to the emergency department for any new or worsening symptoms Prescriptions: No Action bupropion HCl 150 mg tablet extended release 24 hr 150 mg PO QAM Qty: 30 RF: 1 oxycodone-acetaminophen 5-325 mg tablet 1 tab PO Q4-6H PRN (Reason: pain) RF: 0 cyclobenzaprine 10 mg tablet 10 mg PO BEDTIME PRN (Reason: muscle spasm) Qty: 30 RF: 1 ibuprofen 800 mg tablet 800 mg PO Q8H PRN (Reason: pain) Qty: 90 RF: 0 ondansetron 4 mg tablet,disintegrating 4 mg PO Q6H PRN (Reason: nausea and vomiting) Qty: 14 RF: 0 Referrals: Sven Tillman, [Primary Care Provider] -
--- NOTE | 2019-11-16 20:48 | PC.NURSE ---
food and drink given to pt
[2019-11-16 22:00] VITALS: BP 151/101; PULSE 116; RESP 20; TEMP 37.2; O2SAT 97
[2019-11-16 22:05] VITALS: BP 138/83
[2019-11-16 23:07] VITALS: BP 128/75; PULSE 86; RESP 18; TEMP 37.3; O2SAT 97
== END 2019-11-17 00:24 | disposition home or self-care (01) ==
PROVIDERS: Emergency Provider Emergency Medicine; Family Provider Family Medicine; PCP Family Medicine
DX: R42 Dizziness and giddiness (principal)
CPT/HCPCS: 82962; 93005; 99282; 99284

== ENCOUNTER → 2020-03-14 14:13 | Outpatient (CLI) | payer OTHER, MEDICAID, SELFPAY ==
[2020-03-15 22:53] LABS: COVID19 Sendout Not Detected (Not Detect)
== END ==
PROVIDERS: Family Provider Family Medicine; PCP Family Medicine; Visit Provider Physician Assistant
DX: Z01.812 Encounter for preprocedural laboratory examination (principal)
CPT/HCPCS: 87635

== ENCOUNTER 2022-10-13 10:27 | Emergency (ER) | payer OTHER, MEDICAID, SELFPAY ==
--- NOTE | 2022-10-13 10:35 | DI.RAD.S_ITS ---
PROCEDURE: XR CHEST 2V INDICATIONS: COUGH TECHNIQUE: 2 views of the chest were acquired. COMPARISON: None. FINDINGS: Surgical changes and devices: None. Lungs and pleura: Patchy bilateral infrahilar alveolar opacities, left more so than right. No pleural effusion. No pneumothorax. Mediastinum: Mediastinal contours are normal. Heart size is normal. Bones and chest wall: No suspicious bony abnormalities. Soft tissues appear unremarkable. IMPRESSION: 1. Patchy bilateral infrahilar alveolar opacities suggestive of pneumonia. Dictated by: Codie Quarles M.D. on 10/13/2022 at 10:10 Approved by: Codie Quarles M.D. on 10/13/2022 at 10:11
[2022-10-13 10:41] VITALS: BP 138/77; PULSE 91; RESP 18; TEMP 36.6; O2SAT 100; BMI 20.9
[2022-10-13 11:01] LABS: COVID19 -Nasal RAPID Negative (Negative)
--- NOTE | 2022-10-13 12:43 | ED.URI ---
HPI - URI/Sore Throat <PATRIA Rosario - Last Filed: 10/13/22 12:55> General Chief Complaint: Upper Respiratory Symptoms Stated Complaint: chest is feeling heavy/temp 100 T-1 Time Seen by Provider: 10/13/22 11:56 Source: patient Mode of arrival: Ambulatory History of Present Illness HPI Narrative: 42-year-old male, daily smoker, presents to the walk-in clinic with increased chest heaviness and pressure, cough and congestion x1 week. Patient states that he has been coughing so hard that his back is starting to hurt. Patient reports that he smokes 1 pack of cigarettes over 3 day. Patient reports a history of pneumonia in the past. Patient is able to eat and drink without difficulty. Related Data Previous Rx's Medication Instructions Recorded albuterol sulfate 90 mcg/actuation 2 puff inhalation Q4-6H PRN Cough, 10/13/22 aerosol inhaler shortness of breath or wheezing #6.7 grams azithromycin 250 mg tablet See Rx Instructions PO .COMPLEX 10/13/22 Pneumonia #6 tabs Allergies Allergy/AdvReac Type Severity Reaction Status Date / Time Penicillin AdvReac Intermediate Gastrointestinal Uncoded 10/13/22 12:46 Upset Review of Systems <PATRIA Rosario - Last Filed: 10/13/22 12:55> Review of Systems Narrative: Narrative: See HPI. GENERAL: Denies fatigue and sweats. Endorses fever and chills with a T-max of 100.9?. HEENT: Denies sinus pain, ear pain, sore throat, difficulty swallowing, dizziness. RESPIRATORY: Denies dyspnea, wheezing, sputum. Endorses cough and congestion. CARDIOVASCULAR: Denies chest pain, palpitations, edema. GASTROINTESTINAL: Denies nausea, vomiting, abdominal pain, diarrhea, constipation. : Denies dysuria, frequency, incontinence, hematuria, urinary retention, flank pain. MSK: Denies weakness, joint pain, or bony pain. Endorses back pain from coughing. SKIN: Denies rash, skin lesions, or pruritis. NEUROLOGIC: Denies weakness, dizziness, headache, numbness, confusion. PSYCHIATRIC: No concerning psychosocial issues. Patient History <PATRIA Rosario - Last Filed: 10/13/22 12:55> Social History Smoking Status: Current every day smoker Smoking Status: Current every day smoker tobacco type: cigarettes alcohol intake frequency: other Substance Use Type: marijuana Exam <PATRIA Rosario - Last Filed: 10/13/22 12:55> Narrative Exam Narrative: Exam Narrative: GENERAL: This is a well-nourished, well-developed patient, in no acute distress. HEAD: Atraumatic. Normocephalic. EYES: Pupils equal round and reactive. Extraocular motions intact. No scleral icterus, injection or drainage. ENT: Nose without bleeding, purulent drainage. Throat without erythema, tonsillar hypertrophy or exudate. Uvula midline. Airway patent. TMs and canals clear. No sinus tenderness. NECK: Trachea midline. No JVD or lymphadenopathy. Nontender. CARDIOVASCULAR: Regular rate and rhythm without murmurs, peripheral pulses intact, cap refill <2 sec. RESPIRATORY: Breath sounds with wheezing and rhonchi. Positive productive cough. No increased respiratory effort. No accessory muscle use. GASTROINTESTINAL: Abdomen soft, non-tender, nondistended without guarding or rebound. No suprapubic pain. MSK: Moves all extremities. Normal range of motion, no clubbing or edema. Neurovascularly intact. NEURO: A&O x 3. SKIN: Warm, dry, no rashes or lesions noted. Initial Vital Signs Initial Vital Signs: Vital Signs Temperature 97.8 F 10/13/22 10:41 Pulse Rate 91 H 10/13/22 10:41 Respiratory Rate 18 10/13/22 10:41 Blood Pressure 138/77 10/13/22 10:41 Pulse Oximetry 100 10/13/22 10:41 Oxygen Delivery Method 10/13/22 10:41 Reviewed <Mary Shepherd DO - Last Filed: 10/13/22 18:36> Initial Vital Signs Initial Vital Signs: Vital Signs Temperature 97.8 F 10/13/22 10:41 Pulse Rate 91 H 10/13/22 10:41 Respiratory Rate 18 10/13/22 10:41 Blood Pressure 138/77 10/13/22 10:41 Pulse Oximetry 100 10/13/22 10:41 Oxygen Delivery Method 10/13/22 10:41 Course <PATRIA Rosario - Last Filed: 10/13/22 12:55> Orders Ordered: ED Orders 10/13/22 10:35 XR chest 2V Stat COVID19 -Nasal RAPID/Pre-Proc Stat Vital Signs Vital signs: Vital Signs - 8 hr 10/13/22 10:41 10/13/22 13:12 Temperature 97.8 F Pulse Rate 91 H 91 H Respiratory Rate 18 14 Blood Pressure 138/77 146/89 H Pulse Oximetry 100 97 Oxygen Delivery Method Room Air Room Air <Mary Devora Shepherd DO - Last Filed: 10/13/22 18:36> Orders Ordered: ED Orders 10/13/22 10:35 XR chest 2V Stat COVID19 -Nasal RAPID/Pre-Proc Stat Vital Signs Vital signs: Vital Signs - 8 hr 10/13/22 10:41 10/13/22 13:12 Temperature 97.8 F Pulse Rate 91 H 91 H Respiratory Rate 18 14 Blood Pressure 138/77 146/89 H Pulse Oximetry 100 97 Oxygen Delivery Method Room Air Room Air MDM - URI/Sore Throat <PATRIA Rosario - Last Filed: 10/13/22 12:55> Differential Diagnosis Differential diagnosis: Likely upper respiratory infection, sinusitis and bronchitis; Unlikely otitis media Lab Data Labs: Lab Results 10/13/22 Range/Units 10:35 SARS-CoV-2 (PCR) Negative (Negative) Imaging Data Chest x-ray: Radiologist's Impression: [address] [id number] ReportSigned Patient: Jomar Lindsay#: [id number]: 1980Acct:[id number]/Sex: 42 / MDate of Service: 10/13/22Loc: EDAccession Number: [id number] Procedure: XR chest 2V Ordering Provider: *ROSETTA Dacosta* PROCEDURE: XR CHEST 2V INDICATIONS: COUGH TECHNIQUE: 2 views of the chest were acquired. COMPARISON: None. FINDINGS: Surgical changes and devices: None. Lungs and pleura: Patchy bilateral infrahilar alveolar opacities, left more so than right. No pleural effusion. No pneumothorax. Mediastinum: Mediastinal contours are normal. Heart size is normal. Bones and chest wall: No suspicious bony abnormalities. Soft tissues appear unremarkable. IMPRESSION: 1. Patchy bilateral infrahilar alveolar opacities suggestive of pneumonia. Dictated by: Codie Quarles M.D. on 10/13/2022 at 10:10 Approved by: Codie Quarles M.D. on 10/13/2022 at 10:11 [facility] Narrative Medical decision making narrative: 42-year-old male presents to the walk-in clinic with cough and chest pressure x1 week. Assessment was concerning due to rhonchi and wheezing. Chest x-ray revealed pneumonia. Will treat with azithromycin and a albuterol inhaler. Discussed plan of care and return precautions with patient, who verbalized understanding. <Mary Shepherd, DO - Last Filed: 10/13/22 18:36> Lab Data Labs: Lab Results 10/13/22 Range/Units 10:35 SARS-CoV-2 (PCR) Negative (Negative) Discharge Plan Departure Patient Disposition: Home Clinical Impression: Pneumonia Instructions: DI for Pneumonia -- Adult Activity Restrictions/Additional Instructions: *You have been diagnosed with pneumonia. We will treat this with antibiotics that you will take over the next 5 days. Additionally, I will prescribe a albuterol inhaler that you should use every 4-6 hours for cough, wheezing or shortness of breath. For any worsening symptoms that include shortness of breath, chest pain or intolerable pain, please return to the emergency department. Otherwise, please follow-up with your family doctor as needed. *What to do: *Please continue to take your regular medications as directed. [x ] New medication prescriptions sent to your pharmacy: [[facility]] [ ] New medication written as a paper prescription [ ] No new medications given *Please follow up with your primary care provider in 2-3 days, call for an appointment. Let them know you were seen in the Emergency Department and that we ask that you be seen in follow up. We will electronically transmit a record of today's note if your PCP is in our system *If you do not have a primary care provider please contact the [facility] Resource line at [phone]. They will ask some questions about your medical history and help get you set up with a doctor in the community. ? Return to ER if you should have any new, worsening or concerning symptoms, such as worsening pain, severe headache, confusion, chest pain, difficulty breathing, fever greater than 101 F, shaking chills, persistent vomiting to the point that you cannot drink fluids, or other new or worsening symptoms. Prescriptions: New azithromycin 250 mg tablet See Rx Instructions .ROUTE .COMPLEX Qty: 6 0RF Rx Instructions: For 250 mg dose pack: take 500 mg today (day 1), then 250 mg for 4 days (days 2-5) albuterol sulfate 90 mcg/actuation HFA aerosol inhaler 2 puff inhalation Q4-6H PRN (Reason: Cough, shortness of breath or wheezing) Qty: 6.7 0RF Referrals: Miscellaneous,Doctor, MD [Primary Care Provider] - Stand Alone Forms: Patient Portal/API <Mary Shepherd DO - Last Filed: 10/13/22 18:36> Cosign ED Attending Cosluisature Attestation: I was immediately available in the department for consultation. Documentation has been reviewed.
[2022-10-13 13:12] VITALS: BP 146/89; PULSE 91; RESP 14; O2SAT 97
== END 2022-10-13 13:14 | disposition home or self-care (01) ==
PROVIDERS: Emergency Medicine; Emergency Provider Registered Nurse
DX: J18.9 Pneumonia, unspecified organism (principal); F17.200 Nicotine dependence, unspecified, uncomplicated; Z20.822 Contact with and (suspected) exposure to COVID-19
CPT/HCPCS: 71046; 87635; 99281; 99283; C9803

== ENCOUNTER 2023-04-22 23:39 | Emergency (ER) | payer OTHER, MEDICAID, SELFPAY ==
[2023-04-22 23:45] VITALS: BP 149/86; PULSE 87; RESP 18; TEMP 36.6; O2SAT 99; BMI 22.8
--- NOTE | 2023-04-22 23:51 | DI.RAD.S_ITS ---
PROCEDURE: XR ELBOW RT MIN 3V INDICATIONS: injury TECHNIQUE: 3 views of the elbow were acquired. COMPARISON: [facility], CR, XR ELBOW RT MIN 3V, 09/04/2018, 19:11. FINDINGS: Bones: No fractures or dislocations. No suspicious bony lesions. Soft tissues: No elbow joint effusion. No suspicious soft tissue calcifications. IMPRESSION: 1. No fracture or dislocation. Dictated by: Akhil Tracey M.D. on 04/23/2023 at 0:49 Approved by: Akhil Tracey M.D. on 04/23/2023 at 1:06
== END 2023-04-23 01:20 | disposition left against medical advice (07) ==
PROVIDERS: Emergency Provider Emergency Medicine; Family Provider Family Medicine
DX: S59.901A Unspecified injury of right elbow, initial encounter (principal)
CPT/HCPCS: 73080; 99281

== ENCOUNTER 2024-09-27 13:39 | Emergency (ER) | payer OTHER, SELFPAY ==
[2024-09-27 13:47] VITALS: BP 136/84; PULSE 72; RESP 20; TEMP 37.1; O2SAT 98; BMI 23.6
--- NOTE | 2024-09-27 14:06 | ED.SKABFB ---
HPI - Skin/Abscess/Foreign Bdy <Maine Osuna PA-C - Last Filed: 09/27/24 17:07> General Chief complaint: Skin/Abscess/Foreign Body Stated complaint: Belly button pain Time Seen by Provider: 09/27/24 13:57 Source: patient Mode of arrival: Ambulatory Limitations: no limitations History of Present Illness HPI narrative: 43-year-old male with past medical history umbilical hernia, ADHD, anxiety, RLS, hypertension, depression presents to the ED with 1 week of worsening periumbilical pain. Patient states that he was diagnosed with a hernia about 15 years ago, no interventions thus far for it. Patient states that since last week, he noted periumbilical tenderness and swelling which is worsened with eating. Patient notes that he is also experiencing early satiety. Endorses nausea, denies vomiting. Endorses subjective fevers. No chest pain, shortness of breath. No hematochezia, melena, diarrhea, constipation. Patient does endorse urinary frequency. Denies dysuria. Related Data Home Medications Medication Instructions Recorded Confirmed oxycodone-acetaminophen 5 mg-325 1 tab PO Q4-6H PRN pain 10/11/19 10/11/19 mg tablet Previous Rx's Medication Instructions Recorded ibuprofen 800 mg tablet 800 mg PO Q8H PRN pain #90 tabs 09/18/19 ondansetron 4 mg disintegrating 4 mg PO Q6H PRN nausea and 09/18/19 tablet vomiting #14 tabs cyclobenzaprine 10 mg tablet 10 mg PO BEDTIME PRN muscle spasm 10/11/19 #30 tabs bupropion HCl 150 mg 24 hr tablet, 150 mg PO QAM Depression #90 tabs 12/11/19 extended release albuterol sulfate 90 mcg/actuation 2 puff inhalation Q4-6H PRN Cough, 10/13/22 aerosol inhaler shortness of breath or wheezing #6.7 grams azithromycin 250 mg tablet See Rx Instructions PO .COMPLEX 10/13/22 Pneumonia #6 tabs Allergies Allergy/AdvReac Type Severity Reaction Status Date / Time bacitracin Allergy Severe swelling Verified 04/23/23 07:38 [From Neosporin and dyspnea ([id number])] gabapentin Allergy Severe Rash on Verified 04/23/23 07:38 back iodine Allergy Severe anaphylaxis Verified 04/23/23 07:38 neomycin Allergy Severe swelling Verified 04/23/23 07:38 [From Neosporin and dyspnea ([id number])] Penicillins Allergy Severe N/V and Verified 04/23/23 07:38 facial swelling polymyxin B Allergy Severe swelling Verified 04/23/23 07:38 [From Neosporin and dyspnea ([id number])] levofloxacin [From Levaquin] Allergy Unknown Verified 04/23/23 07:38 Penicillin AdvReac Intermediate Gastrointestinal Uncoded 04/23/23 07:38 Upset Review of Systems <Maine Osuna PA-C - Last Filed: 09/27/24 17:07> Constitutional Constitutional: Denies chills, Denies fatigue, Denies fever(s), Denies frequent falls, Denies lethargy and Denies weakness Eyes Eyes: Denies change in vision, Denies eye discharge, Denies irritation and Denies loss of vision ENT Ears, Nose, Mouth, and Throat: Denies change in voice, Denies dizziness, Denies neck pain, Denies sore throat and Denies throat swelling Cardiovascular Cardiovascular: Denies chest pain, Denies irregular heart rhythm, Denies lightheadedness, Denies palpitations, Denies dyspnea, Denies dyspnea on exertion and Denies orthopnea Respiratory Respiratory: Denies cough, Denies dyspnea, Denies dyspnea on exertion and Denies wheezing Gastrointestinal Gastrointestinal: Reports abdominal pain, Denies change in bowel habits, Reports early satiety, Denies diarrhea, Reports nausea and Denies vomiting Musculoskeletal Musculoskeletal: Denies neck pain and Denies numbness Integumentary/Breasts Skin/Breast: Denies pruritus, Denies erythema, Denies rash and Denies wounds Neurologic Neurologic: Denies behavioral changes, Denies confusion, Denies dizziness, Denies frequent falls, Denies loss of vision, Denies numbness and Denies weakness Psychiatric Psychiatric: Denies anxiety, Denies behavioral changes, Denies confusion, Denies depression, Denies homicidal ideation and Denies suicidal ideation Endocrine Endocrine: Denies fatigue, Denies flushing and Denies palpitations Hematologic/Lymphatic Hematologic/Lymphatic: Denies easy bruising Allergic/Immunologic Allergic/Immunologic: Denies urticaria, Denies throat swelling and Denies wheezing Patient History <JEWELL Lovell Last Filed: 09/27/24 17:07> Medical History (Updated 09/27/24 @ 16:26 by Maine Osuna PA-C) Hypertension Depression Tobacco abuse Lumbar radiculopathy, chronic Surgical History (System 04/23/23 @ 07:38 by Em Levine) Anesthesia History of spinal surgery No pertinent past surgical history Family History (System 04/23/23 @ 07:38 by Em Levine) Father Hypertension Mental health problem Stroke Mother History of heart disease Mental health problem Stroke Social History (System 04/23/23 @ 07:38 by Em Levine) Smoking Status: Former smoker Tobacco: How many years used: 14 quit status: considering quitting second hand exposure: No alcohol intake: former substance use type: marijuana (current use for back pain ) Smoking Status: Former smoker tobacco type: cigarettes alcohol intake frequency: other Exam <Maine Osuna PA-C - Last Filed: 09/27/24 17:07> Narrative Exam Narrative: Const General:?cooperative, healthy appearing and comfortable HENMT Head:?normal to inspection Ears:?hearing grossly normal bilaterally Nose:?external nose normal Face and sinus:?normal facial exam and sinuses nontender Mouth:?oral mucosae normal Throat:?posterior oropharynx normal Eyes General:?appearance normal, both eyes and all related structures Neck Neck:?normal visual inspection and no lymphadenopathy noted Resp Effort & Inspection:?normal respiratory effort Auscultation:?clear to auscultation bilaterally Cardio Rate:?regular rate Rhythm:?regular rhythm GI To palpation in the periumbilical region. Abdomen is soft, nondistended. No palpable hernia Neuro General:?patient alert, patient awake and patient oriented x3 Initial Vital Signs Initial Vital Signs: Vital Signs Temperature 98.7 F 09/27/24 13:47 Pulse Rate 72 09/27/24 13:47 Respiratory Rate 20 09/27/24 13:47 Blood Pressure 136/84 09/27/24 13:47 Pulse Oximetry 98 09/27/24 13:47 Oxygen Delivery Method Room Air 09/27/24 13:47 <Mary Shepherd DO - Last Filed: 09/27/24 19:00> Initial Vital Signs Initial Vital Signs: Vital Signs Temperature 98.7 F 09/27/24 13:47 Pulse Rate 72 09/27/24 13:47 Respiratory Rate 20 09/27/24 13:47 Blood Pressure 136/84 09/27/24 13:47 Pulse Oximetry 98 09/27/24 13:47 Oxygen Delivery Method Room Air 09/27/24 13:47 Course <Maine Osuna PA-C - Last Filed: 09/27/24 17:07> Orders Ordered: ED Orders 09/27/24 14:15 CT abdomen pelvis w con Stat 09/27/24 14:20 CBC Auto Diff [Complete Blood Count AUTO DIFF] Stat CMP [Comprehensive Metabolic Panel] Stat Lactate (Lactic Acid) Stat Lipase Stat Discontinued Medications Diphenhydramine HCl (Diphenhydramine 50 Mg/Ml Vial) 50 mg IV NOW ONE Stop: 09/27/24 14:20 Last Admin: 09/27/24 14:27 Dose: 50 mg Documented By: ES Ketorolac Tromethamine (Ketorolac 30 Mg/Ml Vial) 15 mg IV NOW ONE Stop: 09/27/24 14:18 Last Admin: 09/27/24 14:27 Dose: 15 mg Documented By: ES Methylprednisolone (Methylprednisolone 125 Mg/2 Ml Vial) 125 mg IV NOW ONE Stop: 09/27/24 14:20 Last Admin: 09/27/24 14:34 Dose: 125 mg Documented By: ES Vital Signs Vital signs: Vital Signs - 8 hr 09/27/24 13:47 Temperature 98.7 F Pulse Rate 72 Respiratory Rate 20 Blood Pressure 136/84 Pulse Oximetry 98 Oxygen Delivery Method Room Air <Mary Shepherd, - Last Filed: 09/27/24 19:00> Orders Ordered: ED Orders 09/27/24 14:15 CT abdomen pelvis w con Stat 09/27/24 14:20 CBC Auto Diff [Complete Blood Count AUTO DIFF] Stat CMP [Comprehensive Metabolic Panel] Stat Lactate (Lactic Acid) Stat Lipase Stat Discontinued Medications Diphenhydramine HCl (Diphenhydramine 50 Mg/Ml Vial) 50 mg IV NOW ONE Stop: 09/27/24 14:20 Last Admin: 09/27/24 14:27 Dose: 50 mg Documented By: ES Ketorolac Tromethamine (Ketorolac 30 Mg/Ml Vial) 15 mg IV NOW ONE Stop: 09/27/24 14:18 Last Admin: 09/27/24 14:27 Dose: 15 mg Documented By: ES Methylprednisolone (Methylprednisolone 125 Mg/2 Ml Vial) 125 mg IV NOW ONE Stop: 09/27/24 14:20 Last Admin: 09/27/24 14:34 Dose: 125 mg Documented By: ALICIA Vital Signs Vital signs: Vital Signs - 8 hr 09/27/24 13:47 Temperature 98.7 F Pulse Rate 72 Respiratory Rate 20 Blood Pressure 136/84 Pulse Oximetry 98 Oxygen Delivery Method Room Air MDM - Skin/Abscess/Foreign Bdy <Maine Osuna PA-C - Last Filed: 09/27/24 17:07> Lab Data 09/27/24 14:20 09/27/24 14:20 Labs: Lab Results 09/27/24 Range/Units 14:20 WBC 7.9 (4.5-11.0) X10^3/uL RBC 5.04 (4.5-5.9) X10^6/uL Hgb 14.7 (13.5-17.5) g/dL Hct 44.4 (41-53) % MCV 88.1 (80-100) fL MCH 29.2 (26-34) PG MCHC 33.2 (30-36) % RDW 14.1 (11.6-14.8) % Plt Count 305 (150-400) X10^3/uL Neut % (Auto) 62.0 (50-75) % Lymph % (Auto) 20.4 L (25-40) % [place] % (Auto) 12.5 (3-14) % Eos % (Auto) 4.0 (2-4) % Baso % (Auto) 1.1 (0-2) % Neut # (Auto) 4900 (4388-1282) /uL Lymph # (Auto) 1600 (6914-8426) /uL Nobles # (Auto) 1000 H (0-900) /uL Eos # (Auto) 300 (0-450) /uL Baso # (Auto) 100 (0-100) /uL Sodium 138 (137-145) mmol/L Potassium 4.6 (3.4-5.1) mmol/L Chloride 105 (98-107) mmol/L Carbon Dioxide 26 (22-32) mmol/L BUN 18 (9-20) mg/dL Creatinine 0.85 (0.66-1.25) mg/dL Estimated GFR > 60 (>60) mL/min BUN/Creatinine Ratio 21.2 (6-22) Glucose 91 (70-100) mg/dL Lactate 0.9 (0.7-2.1) mmol/L Calcium 9.1 (8.4-10.2) mg/dL Total Bilirubin 0.3 (0.2-1.3) mg/dL AST 94 H (17-59) IU/L ALT 250 H (<50) IU/L Alkaline Phosphatase 70 (38-126) U/L Total Protein 7.5 (6.3-8.2) g/dL Albumin 4.6 (3.5-5.0) g/dL Globulin 2.9 (1.7-4.1) g/dL Albumin/Globulin Ratio 1.6 (1.0-2.8) Lipase 52 (23-300) U/L Urine Dip Bedside Urine Glucose Negative Bedside Urine Bilirubin - Negative Bedside Urine Ketone - Negative Urine Specific [place] 1.015 Bedside Urine Occult Blood - Negative Bedside Urine pH 6.0 Bedside Urine Protein - Negative Bedside Urine Urobilinogen - Negative Bedside Urine Nitrite - Negative Bedside Urine Leukocytes - Negative Esterase MDM Narrative Medical decision making narrative: 43-year-old male with past medical history umbilical hernia, ADHD, anxiety, RLS, hypertension, depression presents to the ED with 1 week of worsening periumbilical pain. Concern for umbilical hernia that might be strangulated or incarcerated versus SBO versus constipation versus other intra abdominal pathology versus other. Will obtain labs, lactate, lipase, UA, CT abdomen pelvis. Will give Toradol for pain. Will reassess. Patient has a contrast allergy, will premedicate prior to CT scan. CT scan was obtained, patient tolerated well with no complications. Labs with AST elevated to 94, ALT elevated at 250. All other labs within normal limits. CT scan shows a fat containing periumbilical hernia. No significant fat stranding or edema. There is a partially visualized right lower lobe subpleural nodule measuring 4 mm. Likely a benign intrapulmonary lymph node. Mild diverticulosis without evidence of diverticulitis. Patient's symptoms were well controlled with ketorolac. Discussed findings with patient. Recommend patient follow-up with general surgery for further evaluation and treatment. Recommend Tylenol, ibuprofen for discomfort. ED return precautions were discussed with patient. Patient verbalized understanding. Medical records reviewed: Yes <Mary Shepherd DO - Last Filed: 09/27/24 19:00> Lab Data Labs: Lab Results 09/27/24 Range/Units 14:20 WBC 7.9 (4.5-11.0) X10^3/uL RBC 5.04 (4.5-5.9) X10^6/uL Hgb 14.7 (13.5-17.5) g/dL Hct 44.4 (41-53) % MCV 88.1 (80-100) fL MCH 29.2 (26-34) PG MCHC 33.2 (30-36) % RDW 14.1 (11.6-14.8) % Plt Count 305 (150-400) X10^3/uL Neut % (Auto) 62.0 (50-75) % Lymph % (Auto) 20.4 L (25-40) % [place]les % (Auto) 12.5 (3-14) % Eos % (Auto) 4.0 (2-4) % Baso % (Auto) 1.1 (0-2) % Neut # (Auto) 4900 (1912-2148) /uL Lymph # (Auto) 1600 (6491-7586) /uL [place] # (Auto) 1000 H (0-900) /uL Eos # (Auto) 300 (0-450) /uL Baso # (Auto) 100 (0-100) /uL Sodium 138 (137-145) mmol/L Potassium 4.6 (3.4-5.1) mmol/L Chloride 105 (98-107) mmol/L Carbon Dioxide 26 (22-32) mmol/L BUN 18 (9-20) mg/dL Creatinine 0.85 (0.66-1.25) mg/dL Estimated GFR > 60 (>60) mL/min BUN/Creatinine Ratio 21.2 (6-22) Glucose 91 (70-100) mg/dL Lactate 0.9 (0.7-2.1) mmol/L Calcium 9.1 (8.4-10.2) mg/dL Total Bilirubin 0.3 (0.2-1.3) mg/dL AST 94 H (17-59) IU/L ALT 250 H (<50) IU/L Alkaline Phosphatase 70 (38-126) U/L Total Protein 7.5 (6.3-8.2) g/dL Albumin 4.6 (3.5-5.0) g/dL Globulin 2.9 (1.7-4.1) g/dL Albumin/Globulin Ratio 1.6 (1.0-2.8) Lipase 52 (23-300) U/L Urine Dip Bedside Urine Glucose Negative Bedside Urine Bilirubin - Negative Bedside Urine Ketone - Negative Urine Specific [place] 1.015 Bedside Urine Occult Blood - Negative Bedside Urine pH 6.0 Bedside Urine Protein - Negative Bedside Urine Urobilinogen - Negative Bedside Urine Nitrite - Negative Bedside Urine Leukocytes - Negative Esterase Discharge Plan Departure Patient Disposition: Home Clinical Impression: Abdominal pain Qualifiers: Abdominal location: periumbilical Qualified Code(s): R10.33 - Periumbilical pain Instructions: DI for Abdominal Pain-Adult Activity Restrictions/Additional Instructions: You were evaluated in the ED today for abdominal pain. Your CT scan did show a umbilical hernia, however it is not infected or incarcerated or strangulated. It is reassuring that you do not have any emergent findings today. Given that the hernia is causing your symptoms, it is advised that you follow-up with a general surgeon for further evaluation. There was an incidental finding of a right lower lung nodule measuring 4 mm. It is likely a benign intrapulmonary lymph node. However, please follow-up with your PCP for further evaluation of this. You may continue to take Tylenol, ibuprofen for your abdominal pain. Return to the ED if you have worsening symptoms. Prescriptions: No Action bupropion HCl 150 mg tablet extended release 24 hr 150 mg PO QAM Qty: 90 0RF oxycodone-acetaminophen 5-325 mg tablet 1 tab PO Q4-6H PRN (Reason: pain) cyclobenzaprine 10 mg tablet 10 mg PO BEDTIME PRN (Reason: muscle spasm) Qty: 30 1RF azithromycin 250 mg tablet See Rx Instructions .ROUTE .COMPLEX Qty: 6 0RF Rx Instructions: For 250 mg dose pack: take 500 mg today (day 1), then 250 mg for 4 days (days 2-5) albuterol sulfate 90 mcg/actuation HFA aerosol inhaler 2 puff inhalation Q4-6H PRN (Reason: Cough, shortness of breath or wheezing) Qty: 6.7 0RF ibuprofen 800 mg tablet 800 mg PO Q8H PRN (Reason: pain) Qty: 90 0RF ondansetron 4 mg tablet,disintegrating 4 mg PO Q6H PRN (Reason: nausea and vomiting) Qty: 14 0RF Stand Alone Forms: Patient Portal/API/Survey ED Sign-out <Mary Shepherd, - Last Filed: 09/27/24 19:00> Cosign ED Attending Cosignature Attestation: I was immediately available in the department for consultation.
--- NOTE | 2024-09-27 14:15 | DI.CT.S_ITS ---
PROCEDURE: CT ABDOMEN PELVIS W CON INDICATIONS: periumbilical pain TECHNIQUE: After the administration of intravenous contrast, axial sections acquired from the lung bases to the pubic symphysis. Coronal and sagittal reformats were performed. For radiation dose reduction, the following was used: automated exposure control, adjustment of mA and/or kV according to patient size. COMPARISON: None. FINDINGS: Image quality: Diagnostic. Lower Chest: 4 mm right lower lobe subpleural nodule is partially visualized (3/1). ABDOMEN: Liver: No solid mass. Gallbladder: No radiopaque gallstones or wall thickening. Biliary ducts: No biliary dilation. Pancreas: No ductal dilation. Spleen: Size is within normal limits. Adrenal Glands: No adrenal nodules. Kidneys and Ureters: No hydronephrosis. No solid mass. No complex renal cystic lesion which requires follow up. Stomach and Bowel: Normal colonic caliber, without significant wall thickening. Mild diverticulosis without evidence of acute diverticulitis. Moderate stool burden. Normal appendix. Peritoneum: No abnormal intraperitoneal fluid. No free air. Ventral Wall: Small periumbilical hernia containing fat. Fascial defect measures 1.6 cm in hernia sac measures approximately 2.0 x 2.2 x 2.5 cm. . Abdominal Nodes: No retroperitoneal or mesenteric adenopathy by size criteria. Vessels: Aorta and inferior vena cava are normal in size. Atherosclerotic vascular calcifications. PELVIS: Pelvic Organs: Unremarkable. Bladder: No bladder wall thickening, accounting for underdistention. Pelvic Nodes: No enlarged lymph nodes. Miscellaneous: No inguinal hernias are seen. Bones: No aggressive osseous abnormality. Mild degenerative changes of the lower lumbar spine. IMPRESSION: 1. Fat containing periumbilical hernia as described above. No significant fat stranding or edema. 2. Partially visualized right lower lobe subpleural nodule measuring 4 mm. Likely a benign intrapulmonary lymph node. 3. Mild diverticulosis without evidence of acute diverticulitis. Dictated by: Dominguez Richardson M.D. on 09/27/2024 at 16:04 Approved by: Dominguez Richardson M.D. on 09/27/2024 at 16:10
[2024-09-27] MEDS: diphenhydrAMINE 50 MG/ML VIAL IV (14:27)
[2024-09-27] MEDS: KETOROLAC 30 MG/ML VIAL 15 MG IV (14:27)
[2024-09-27] MEDS: methylPREDNISolone 125 MG/2 ML VIAL IV (14:34)
[2024-09-27 14:40] LABS: Add Manual Diff / Slide Review NO; Basophils Absolute Auto 100 /uL (0-100); Basophils Percent Auto 1.1 % (0-2); Eosinophils Absolute Auto 300 /uL (0-450); Hematocrit 44.4 % (41-53); Hemoglobin 14.7 g/dL (13.5-17.5); Lymphocytes Absolute Auto 1600 /uL (1100-4500); Lymphocytes Percent Auto 20.4 % (25-40); Mean Corpuscular HGB Conc 33.2 % (30-36); Mean Corpuscular Hemoglobin 29.2 PG (26-34); Mean Corpuscular Volume 88.1 fL (80-100); Monocytes Absolute Auto 1000 /uL (0-900); Monocytes Percent Auto 12.5 % (3-14); Neutrophils Absolute Auto 4900 /uL (1500-7000); Platelet Count 305 X10^3/uL (150-400); Red Blood Cell Count 5.04 X10^6/uL (4.5-5.9); Red Cell Distribution Width 14.1 % (11.6-14.8); White Blood Cell Count 7.9 X10^3/uL (4.5-11.0)
[2024-09-27 14:54] LABS: Alanine Aminotransferase 250 IU/L (<50); Albumin 4.6 g/dL (3.5-5.0); Albumin Globulin Ratio 1.6 (1.0-2.8); Alkaline Phosphatase 70 U/L (38-126); Aspartate Aminotransferase 94 IU/L (17-59); BUN Creatinine Ratio 21.2 (6-22); Bilirubin Total 0.3 mg/dL (0.2-1.3); Blood Urea Nitrogen 18 mg/dL (9-20); Calcium 9.1 mg/dL (8.4-10.2); Carbon Dioxide 26 mmol/L (22-32); Chloride 105 mmol/L (98-107); Estimated Glomerular Filt Rate > 60 mL/min (>60); Globulin 2.9 g/dL (1.7-4.1); Glucose 91 mg/dL (70-100); HEMOLYSIS < 15 (0-50); Lactate (Lactic Acid) 0.9 mmol/L (0.7-2.1); Lipase 52 U/L (23-300); Potassium 4.6 mmol/L (3.4-5.1); Sodium 138 mmol/L (137-145); Total Protein 7.5 g/dL (6.3-8.2)
== END 2024-09-27 16:33 | disposition home or self-care (01) ==
PROVIDERS: Emergency Provider Student in an Organized Health Care Education/Training Program; Family Provider Family Medicine
DX: K42.9 Umbilical hernia without obstruction or gangrene (principal)
CPT/HCPCS: 36415; 74177; 80053; 81003; 83605; 83690; 85025; 96374; 96375; 99284; J1200; J1885; J2919; Q9967

== ENCOUNTER → 2025-08-16 09:51 | Outpatient (CLI) | payer MEDICAID, SELFPAY ==
--- NOTE | 2025-08-16 09:53 | DI.US.S_ITS ---
PROCEDURE: US ABDOMEN LIMITED INDICATIONS: Ventral hernia just superior to umbilicus TECHNIQUE: Real-time focused scanning was performed of the abdomen, with image documentation. COMPARISON: Located Within [facility], CT, CT ABDOMEN PELVIS W CON, 09/27/2024, 14:55. FINDINGS: There is a small periumbilical abdominal wall defect measures 1.5 cm in with with a partially reducible herniation sac containing fat only. Trace amount of fluid is also noted within the herniation sac. IMPRESSION: Partially reducible supraumbilical hernia containing fat and trace amount of fluid as described above. Dictated by: Reyes Pina M.D. on 08/16/2025 at 11:08 Approved by: Reyes Pina M.D. on 08/16/2025 at 11:10
== END ==
LOC: US 09:51
PROVIDERS: Family Provider Family Medicine; PCP Family Medicine; Referring Provider Family Medicine; Visit Provider Family Medicine
DX: K43.9 Ventral hernia without obstruction or gangrene (principal)
CPT/HCPCS: 76705